=== PATIENT | female | born 1960 | race Caucasian/White ===

== ENCOUNTER → 2020-09-08 | Day surgery (SDC) | payer OTHER ==
[~2020-09-08] MED LIST: BENTYL10 MG PO; CIPRO500 M1 PO; DITROPAN5 MG PO; FLEXERIL10 MG PO; IBUPROFEN800 MG PO; MEDROL 4MG DOSEP4 MG PO; PRINIVIL10 MG PO; ULTRAM50 MG PO; VENTOLIN HFA IN18 GM INH; ZOFRAN4 MG PO; ZOLOFT100 MG PO
== END | disposition home or self-care (01) ==
LOC: FAS 06:40
DX: K52.832 Lymphocytic colitis (principal); I10 Essential (primary) hypertension; N39.0 Urinary tract infection, site not specified; J45.909 Unspecified asthma, uncomplicated; F17.219 Nicotine dependence, cigarettes, with unspecified nicotine-induced disorders; E66.9 Obesity, unspecified; Z88.5 Allergy status to narcotic agent; Z82.3 Family history of stroke; Z80.0 Family history of malignant neoplasm of digestive organs; Z68.32 Body mass index [BMI] 32.0-32.9, adult
CPT/HCPCS: 83993; J2250; J2704; J7120

== ENCOUNTER 2021-10-31 07:19 | Emergency (ER) | payer OTHER ==
[2021-10-31 08:17] LABS: BASOPHIL 0.6 % (0-2); EOSINOPHIL 3.5 % (0-5); HCT 43.4 % (37.0-47.0); HGB 14.5 g/dl (12.5-16.0); LYMPHOCYTE 26.5 % (15-48); MCH 28.3 pg (25.0-31.0); MCHC 33.4 g/dL (32.0-36.0); MCV 84.6 fL (78.0-100.0); MONOCYTE 13.1 % (0-12); MPV 10.2 fL (6.0-9.5); NEUTROPHIL 55.7 % (41-80); NRBC 0; PLT 256 K/uL (150-400); RBC 5.13 M/uL (4.20-5.40); RDW 11.9 % (11.5-14.0); WBC 5.1 K/uL (4.0-10.5)
[2021-10-31 08:19] LABS: ALBUMIN 3.6 g/dL (3.4-5.0); BILIRUBIN - TOTAL 0.3 mg/dL (0.2-1.0); CREATININE 0.84 mg/dL (0.51-0.95); GLOBULIN (CALCULATION) 3.4 g/dL; POTASSIUM 3.7 mmol/L (3.5-5.1)
[2021-10-31 08:20] LABS: BILIRUBIN NEGATIVE (NEGATIVE); BLOOD TRACE-INTACT Ery/uL (NEGATIVE); CLARITY CLEAR (CLEAR); COLOR YELLOW (YELLOW); GLUCOSE (U) NORMAL (NORMAL); LEUKOCYTES NEGATIVE Leu/uL (NEGATIVE); NITRITE NEGATIVE (NEGATIVE); PROTEIN NEGATIVE (NEGATIVE); SPECIFIC GRAVITY >=1.030 (1.001-1.030); UROBILINOGEN 0.2 mg/dL (0.2-1.0)
[2021-10-31 08:29] LABS: BACTERIA 1+
[2021-10-31 08:59] LABS: LACTIC ACID 0.6 mmol/L (0.4-1.9)
[2021-10-31] MEDS ORDERED: IMODIUM2 MG PO (10:59)
[2021-10-31] MEDS ORDERED: METRONIDAZOLE500 MG PO (10:59)
[2021-10-31] MEDS ORDERED: ONDANSETRON ODT4 MG PO (10:59)
== END 2021-10-31 12:22 | disposition home or self-care (01) ==
LOC: FER 07:19
PROVIDERS: Emergency Medicine
DX: K52.9 Noninfective gastroenteritis and colitis, unspecified (principal); I10 Essential (primary) hypertension; Z88.5 Allergy status to narcotic agent; Z79.899 Other long term (current) drug therapy
CPT/HCPCS: 36415; 80053; 81001; 83605; 83690; 85025; J1170; J2405; J7030; Q9967